=== PATIENT | female | born 1940 | race Caucasian/White ===

== ENCOUNTER 2018-02-16 13:22 | Inpatient (IN) ==
[2018-02-16] MEDS ORDERED: ONDANSETRON 4 MG/2 ML VIAL IV PRN (13:58)
[2018-02-16] MEDS ORDERED: ACETAMINOPHEN 325 MG TABLET PO PRN (13:58)
[2018-02-16] MEDS ORDERED: PROMETHAZINE INJ 25 MG in SODIUM CHLORIDE 0.9% 50 ML IV PRN (14:06)
[2018-02-16 14:46] LABS: Basophils # 0.1 10*3/uL (0.0-0.2); Basophils % 0.9 % (0.0-0.8); Eosinophils # 0.4 10*3/uL (0.0-0.87); Eosinophils % 3.5 % (0.00-10.9); Hematocrit 49.1 VOL% (35.7-47.0); Hemoglobin 15.6 GM/DL (12.0-16.0); Immature Granulocytes % 0.6 %; Immature Granulocytes Absolute 0.07 #; Lymphocytes # 1.4 10*3/uL (1.4-4.0); Lymphocytes % 12.1 % (21.3-54.2); Mean Corpuscular HGB Conc 31.8 GM/DL (32-36); Mean Corpuscular Hemoglobin 29 PG (27-34); Mean Corpuscular Volume 91.4 FL (87-102); Mean Platelet Volume 9.3 FL (9.6-12.0); Monocytes # 0.9 10*3/uL (0.11-0.8); Monocytes % 7.3 % (1.7-12.7); Neutrophils % 75.6 % (38.7-73.9); Platelet Count 364 T/CUMM (130-400); Red Blood Count 5.37 MC/CUMM (3.8-5.5); Red Cell Distribution Width 15.6 % (9.3-17.3); White Blood Count 11.9 T/CUMM (4-12)
[2018-02-16 15:18] LABS: Bilirubin,Total 0.6 MG/DL (0.2-1.0); Calcium 8.6 MG/DL (8.5-10.1); Osmolality,Calculated 274.7 MOS/KG (273-304); Potassium 4.5 MMOL/L (3.5-5.1); Total Protein 7.6 G/DL (6.4-8.3)
[2018-02-16] MEDS: PANTOPRAZOLE 40 MG VIAL IV SCH ×2 (16:58→21:26)
[2018-02-16] MEDS: DEXTROSE 5% LACTATED RINGERS 1,000 ML IV SCH (17:01)
[2018-02-16] MEDS: BUDESONIDE/FORMOTEROL 160-4.5 INHALER 6 GM INH SCH (21:24)
[2018-02-17 05:13] LABS: Basophils # 0.1 10*3/uL (0.0-0.2); Eosinophils # 0.8 10*3/uL (0.0-0.87); Eosinophils % 6.9 % (0.00-10.9); Hematocrit 39.2 VOL% (35.7-47.0); Hemoglobin 12.8 GM/DL (12.0-16.0); Immature Granulocytes % 0.5 %; Immature Granulocytes Absolute 0.06 #; Lymphocytes # 2.2 10*3/uL (1.4-4.0); Mean Corpuscular HGB Conc 32.7 GM/DL (32-36); Mean Corpuscular Hemoglobin 29 PG (27-34); Mean Corpuscular Volume 89.9 FL (87-102); Mean Platelet Volume 9.3 FL (9.6-12.0); Monocytes # 1.3 10*3/uL (0.11-0.8); Monocytes % 10.9 % (1.7-12.7); Neutrophils # 7.7 10*3/uL (1.4-7.4); Neutrophils % 62.7 % (38.7-73.9); Platelet Count 287 T/CUMM (130-400); Red Blood Count 4.36 MC/CUMM (3.8-5.5); Red Cell Distribution Width 15.4 % (9.3-17.3); White Blood Count 12.2 T/CUMM (4-12)
[2018-02-17 05:38] LABS: Albumin 1.7 G/DL (3.4-5.0); Bilirubin,Total 0.6 MG/DL (0.2-1.0); Osmolality,Calculated 271.7 MOS/KG (273-304); Potassium 3.4 MMOL/L (3.5-5.1); Total Protein 6.2 G/DL (6.4-8.3)
[2018-02-17] MEDS ORDERED: LIDOCAINE 100 MG/5 ML SYRINGE ONE (09:25)
[2018-02-17] MEDS: PANTOPRAZOLE 40 MG VIAL IV SCH (11:32)
[2018-02-17] MEDS: PARoxetine 20 MG TABLET PO SCH (11:33)
[2018-02-17] MEDS: BUDESONIDE/FORMOTEROL 160-4.5 INHALER 6 GM INH SCH ×2 (11:33→21:14)
[2018-02-17] MEDS: PROMETHAZINE 25 MG TABLET PO SCH ×2 (12:30→18:38)
[2018-02-17] MEDS ORDERED: methylPREDNISolone ACETATE 80 MG/1 ML VIAL IM ONE ×2 (13:26→15:00)
[2018-02-17] MEDS: DEXTROSE 5% LACTATED RINGERS 1,000 ML IV SCH ×2 (18:25→18:26)
[2018-02-17] MEDS: PANTOPRAZOLE 40 MG TABLET PO SCH (18:38)
[2018-02-17] MEDS: MEMANTINE 10 MG TABLET PO SCH (21:13)
[2018-02-17] MEDS: amLODIPine 10 MG TABLET PO SCH (21:13)
[2018-02-17 21:56] LABS: Apearance,Urine Slightly Hazy (Clear); Bilirubin,Urine Negative (Negative); Blood, Urine Moderate mg/dL (Negative); Glucose,Urine (UA) Negative (Negative); Hyaline Casts,Urine 1 /LPF (0-3); Ketones,Urine Negative (Negative); Mucus,Urine Occasional /LPF (Occasional); Nitrite,Urine Negative (Negative); Protein,Urine Negative; RBC,Urine 7 /HPF (0-4); Squamous Epithelial Cell,Urine Occasional /HPF (0-10); Urine Color Yellow (Yellow); Urine Specific Gravity 1.011 (1.001-1.035); Urine Urobilinogen < 2.0 EU/DL (0.2-1.0); WBC,Urine 26 /HPF (0-6)
[2018-02-18] MEDS: PROMETHAZINE 25 MG TABLET PO SCH ×4 (00:58→18:10)
[2018-02-18 05:21] LABS: Basophils # 0.1 10*3/uL (0.0-0.2); Basophils % 0.8 % (0.0-0.8); Eosinophils # 0.9 10*3/uL (0.0-0.87); Eosinophils % 7.9 % (0.00-10.9); Hematocrit 36.3 VOL% (35.7-47.0); Hemoglobin 11.7 GM/DL (12.0-16.0); Immature Granulocytes % 0.5 %; Immature Granulocytes Absolute 0.05 #; Lymphocytes # 2.6 10*3/uL (1.4-4.0); Lymphocytes % 24.2 % (21.3-54.2); Mean Corpuscular HGB Conc 32.2 GM/DL (32-36); Mean Corpuscular Hemoglobin 29 PG (27-34); Mean Corpuscular Volume 88.8 FL (87-102); Mean Platelet Volume 9.3 FL (9.6-12.0); Monocytes # 1.1 10*3/uL (0.11-0.8); Monocytes % 10.2 % (1.7-12.7); Neutrophils # 6.1 10*3/uL (1.4-7.4); Neutrophils % 56.4 % (38.7-73.9); Platelet Count 270 T/CUMM (130-400); Red Blood Count 4.09 MC/CUMM (3.8-5.5); Red Cell Distribution Width 15.8 % (9.3-17.3); White Blood Count 10.8 T/CUMM (4-12)
[2018-02-18] MEDS: PANTOPRAZOLE 40 MG TABLET PO SCH ×2 (07:23→18:10)
[2018-02-18] MEDS: DEXTROSE 5% LACTATED RINGERS 1,000 ML IV SCH ×2 (07:48→21:15)
[2018-02-18] MEDS: MEMANTINE 10 MG TABLET PO SCH ×2 (09:41→21:15)
[2018-02-18] MEDS: PARoxetine 20 MG TABLET PO SCH (09:42)
[2018-02-18] MEDS: DONEPEZIL 10 MG TABLET PO SCH (09:42)
[2018-02-18] MEDS: BUDESONIDE/FORMOTEROL 160-4.5 INHALER 6 GM INH SCH ×2 (09:42→21:15)
[2018-02-18] MEDS: LORazepam 2 MG/1 ML VIAL IV PRN (10:11)
[2018-02-18] MEDS: amLODIPine 10 MG TABLET PO SCH (21:15)
[2018-02-19] MEDS: PROMETHAZINE 25 MG TABLET PO SCH ×4 (01:01→20:28)
[2018-02-19 05:58] LABS: Basophils # 0.1 10*3/uL (0.0-0.2); Basophils % 0.7 % (0.0-0.8); Eosinophils % 9.9 % (0.00-10.9); Hematocrit 35.7 VOL% (35.7-47.0); Hemoglobin 11.5 GM/DL (12.0-16.0); Immature Granulocytes % 0.6 %; Immature Granulocytes Absolute 0.06 #; Lymphocytes # 2.5 10*3/uL (1.4-4.0); Lymphocytes % 24.7 % (21.3-54.2); Mean Corpuscular HGB Conc 32.2 GM/DL (32-36); Mean Corpuscular Hemoglobin 29 PG (27-34); Mean Corpuscular Volume 89.7 FL (87-102); Mean Platelet Volume 9.3 FL (9.6-12.0); Monocytes % 9.8 % (1.7-12.7); Neutrophils # 5.4 10*3/uL (1.4-7.4); Neutrophils % 54.3 % (38.7-73.9); Platelet Count 252 T/CUMM (130-400); Red Blood Count 3.98 MC/CUMM (3.8-5.5); Red Cell Distribution Width 15.9 % (9.3-17.3)
[2018-02-19] MEDS: PANTOPRAZOLE 40 MG TABLET PO SCH ×2 (06:36→20:30)
[2018-02-19] MEDS: BUDESONIDE/FORMOTEROL 160-4.5 INHALER 6 GM INH SCH ×2 (10:10→20:29)
[2018-02-19] MEDS: PARoxetine 20 MG TABLET PO SCH (10:11)
[2018-02-19] MEDS: MEMANTINE 10 MG TABLET PO SCH ×2 (10:11→20:30)
[2018-02-19] MEDS: DONEPEZIL 10 MG TABLET PO SCH (10:11)
[2018-02-19] MEDS: DEXTROSE 5% LACTATED RINGERS 1,000 ML IV SCH (18:30)
[2018-02-19] MEDS: MEROPENEM 1,000 MG in SYRINGE 1 EACH IV SCH (20:30)
[2018-02-19] MEDS: amLODIPine 10 MG TABLET PO SCH (20:30)
[2018-02-20] MEDS: PROMETHAZINE 25 MG TABLET PO SCH ×5 (01:13→18:27)
[2018-02-20] MEDS: MEROPENEM 1,000 MG in SYRINGE 1 EACH IV SCH ×3 (05:20→20:53)
[2018-02-20 05:51] LABS: Basophils # 0.1 10*3/uL (0.0-0.2); Basophils % 0.8 % (0.0-0.8); Eosinophils # 1.3 10*3/uL (0.0-0.87); Eosinophils % 10.6 % (0.00-10.9); Hemoglobin 13.1 GM/DL (12.0-16.0); Immature Granulocytes % 0.6 %; Immature Granulocytes Absolute 0.07 #; Lymphocytes # 2.9 10*3/uL (1.4-4.0); Lymphocytes % 22.8 % (21.3-54.2); Mean Corpuscular HGB Conc 32.8 GM/DL (32-36); Mean Corpuscular Hemoglobin 29 PG (27-34); Mean Corpuscular Volume 89.9 FL (87-102); Mean Platelet Volume 9.1 FL (9.6-12.0); Monocytes # 1.1 10*3/uL (0.11-0.8); Monocytes % 8.6 % (1.7-12.7); Neutrophils # 7.1 10*3/uL (1.4-7.4); Neutrophils % 56.6 % (38.7-73.9); Platelet Count 320 T/CUMM (130-400); Red Blood Count 4.45 MC/CUMM (3.8-5.5); Red Cell Distribution Width 16.1 % (9.3-17.3); White Blood Count 12.6 T/CUMM (4-12)
[2018-02-20] MEDS: PANTOPRAZOLE 40 MG TABLET PO SCH ×2 (06:06→18:27)
[2018-02-20 06:08] LABS: Albumin 1.8 G/DL (3.4-5.0); Calcium 8.1 MG/DL (8.5-10.1); Osmolality,Calculated 278.3 MOS/KG (273-304); Potassium 3.8 MMOL/L (3.5-5.1); Total Protein 6.8 G/DL (6.4-8.3)
[2018-02-20] MEDS: DEXTROSE 5% LACTATED RINGERS 1,000 ML IV SCH ×2 (06:09→16:04)
[2018-02-20] MEDS: DONEPEZIL 10 MG TABLET PO SCH (09:32)
[2018-02-20] MEDS: MEMANTINE 10 MG TABLET PO SCH ×2 (09:32→20:53)
[2018-02-20] MEDS: BUDESONIDE/FORMOTEROL 160-4.5 INHALER 6 GM INH SCH ×2 (09:33→20:55)
[2018-02-20] MEDS: PARoxetine 20 MG TABLET PO SCH ×2 (09:33→20:53)
[2018-02-20] MEDS: amLODIPine 10 MG TABLET PO SCH (20:53)
[2018-02-20] MEDS ORDERED: PHENAZOPYRIDINE 95 MG TABLET PO SCH (22:19)
[2018-02-21] MEDS: DEXTROSE 5% LACTATED RINGERS 1,000 ML IV SCH ×2 (00:23→09:45)
[2018-02-21] MEDS: PROMETHAZINE 25 MG TABLET PO SCH ×4 (00:24→19:26)
[2018-02-21] MEDS: MEROPENEM 1,000 MG in SYRINGE 1 EACH IV SCH (03:58)
[2018-02-21] MEDS: PANTOPRAZOLE 40 MG TABLET PO SCH ×2 (06:06→19:26)
[2018-02-21 06:40] LABS: Basophils # 0.1 10*3/uL (0.0-0.2); Basophils % 0.7 % (0.0-0.8); Eosinophils % 16.9 % (0.00-10.9); Hemoglobin 11.9 GM/DL (12.0-16.0); Immature Granulocytes % 0.5 %; Immature Granulocytes Absolute 0.06 #; Lymphocytes # 2.3 10*3/uL (1.4-4.0); Lymphocytes % 19.2 % (21.3-54.2); Mean Corpuscular HGB Conc 32.2 GM/DL (32-36); Mean Corpuscular Hemoglobin 29 PG (27-34); Mean Corpuscular Volume 90.7 FL (87-102); Mean Platelet Volume 9.1 FL (9.6-12.0); Monocytes % 8.2 % (1.7-12.7); Neutrophils # 6.5 10*3/uL (1.4-7.4); Neutrophils % 54.5 % (38.7-73.9); Platelet Count 261 T/CUMM (130-400); Red Blood Count 4.08 MC/CUMM (3.8-5.5); Red Cell Distribution Width 16.4 % (9.3-17.3); White Blood Count 11.8 T/CUMM (4-12)
[2018-02-21 07:07] LABS: Calcium 8.2 MG/DL (8.5-10.1); Osmolality,Calculated 278.3 MOS/KG (273-304); Potassium 3.7 MMOL/L (3.5-5.1)
[2018-02-21 07:13] LABS: Eosinophils 10 % (0-10); Hypochromasia 1+; Lymphocytes 17 % (20-55); Microcytosis 1+; Segmented Neutrophils 66 % (50-85); Total Cells Counted 100
[2018-02-21] MEDS: MEMANTINE 10 MG TABLET PO SCH ×2 (09:47→22:22)
[2018-02-21] MEDS: DONEPEZIL 10 MG TABLET PO SCH (09:47)
[2018-02-21] MEDS: BUDESONIDE/FORMOTEROL 160-4.5 INHALER 6 GM INH SCH ×2 (09:48→22:15)
[2018-02-21] MEDS: AMOXICILLIN/CLAV 875 MG TABLET PO SCH ×2 (10:39→22:22)
[2018-02-21] MEDS: LORazepam 2 MG/1 ML VIAL IV PRN (10:48)
[2018-02-21] MEDS ORDERED: PHENAZOPYRIDINE 95 MG TABLET PO SCH (22:12)
[2018-02-21] MEDS: amLODIPine 10 MG TABLET PO SCH (22:22)
[2018-02-21] MEDS: PARoxetine 20 MG TABLET PO SCH (22:22)
[2018-02-21] MEDS: QUEtiapine 25 MG TABLET PO SCH ×2 (22:23)
[2018-02-22] MEDS: PROMETHAZINE 25 MG TABLET PO SCH ×4 (00:22→19:50)
[2018-02-22] MEDS: PANTOPRAZOLE 40 MG TABLET PO SCH ×2 (06:36→19:28)
[2018-02-22] MEDS: DONEPEZIL 10 MG TABLET PO SCH (10:06)
[2018-02-22] MEDS: BUDESONIDE/FORMOTEROL 160-4.5 INHALER 6 GM INH SCH ×2 (10:07→22:21)
[2018-02-22] MEDS: QUEtiapine 25 MG TABLET PO SCH ×2 (10:07→22:22)
[2018-02-22] MEDS: AMOXICILLIN/CLAV 875 MG TABLET PO SCH ×2 (10:07→22:21)
[2018-02-22] MEDS: MEMANTINE 10 MG TABLET PO SCH ×2 (10:07→22:22)
[2018-02-22 10:36] LABS: Apearance,Urine CLEAR (Clear); Bacteria,Urine Occasional /HPF (Few); Bilirubin,Urine Negative (Negative); Blood, Urine Negative (Negative); Glucose,Urine (UA) Negative (Negative); Ketones,Urine Negative (Negative); Nitrite,Urine Negative (Negative); Protein,Urine Negative; RBC,Urine 2 /HPF (0-4); Squamous Epithelial Cell,Urine Occasional /HPF (0-10); Urine Color Straw (Yellow); Urine Specific Gravity 1.006 (1.001-1.035); Urine Urobilinogen < 2.0 EU/DL (0.2-1.0); WBC,Urine 1 /HPF (0-6)
[2018-02-22] MEDS ORDERED: TUBERCULIN SKIN TEST 0.1 ML SYRINGE INTRADERM ONE (15:56)
[2018-02-22] MEDS: amLODIPine 10 MG TABLET PO SCH (22:22)
[2018-02-22] MEDS: PARoxetine 20 MG TABLET PO SCH (22:22)
[2018-02-23] MEDS: PROMETHAZINE 25 MG TABLET PO SCH ×4 (00:36→19:05)
[2018-02-23] MEDS: PANTOPRAZOLE 40 MG TABLET PO SCH ×2 (06:48→19:05)
[2018-02-23] MEDS: BUDESONIDE/FORMOTEROL 160-4.5 INHALER 6 GM INH SCH ×2 (10:37→20:41)
[2018-02-23] MEDS: QUEtiapine 25 MG TABLET PO SCH ×2 (10:38→20:40)
[2018-02-23] MEDS: MEMANTINE 10 MG TABLET PO SCH ×2 (10:38→20:40)
[2018-02-23] MEDS: AMOXICILLIN/CLAV 875 MG TABLET PO SCH ×2 (10:38→20:39)
[2018-02-23] MEDS: DONEPEZIL 10 MG TABLET PO SCH (10:38)
[2018-02-23] MEDS: amLODIPine 10 MG TABLET PO SCH (20:40)
[2018-02-23] MEDS: PARoxetine 20 MG TABLET PO SCH (20:40)
[2018-02-24] MEDS: PROMETHAZINE 25 MG TABLET PO SCH ×2 (00:44→06:19)
[2018-02-24] MEDS: PANTOPRAZOLE 40 MG TABLET PO SCH (06:19)
[2018-02-24 07:59] VITALS: BP 127/64
[2018-02-24] MEDS: QUEtiapine 25 MG TABLET PO SCH (09:17)
[2018-02-24] MEDS: AMOXICILLIN/CLAV 875 MG TABLET PO SCH (09:17)
[2018-02-24] MEDS: DONEPEZIL 10 MG TABLET PO SCH (09:17)
[2018-02-24] MEDS: MEMANTINE 10 MG TABLET PO SCH (09:17)
[2018-02-24] MEDS: BUDESONIDE/FORMOTEROL 160-4.5 INHALER 6 GM INH SCH (09:18)
== END 2018-02-24 11:09 | DRG 392 ==
LOC: N.3E
PROVIDERS: ADMIT Internal Medicine Gastroenterology; ATTEND Internal Medicine Gastroenterology

== ENCOUNTER 2019-03-19 12:22 | Inpatient (IN) ==
[2019-03-19 13:11] LABS: Basophils # 0.1 10*3/uL (0.0-0.2); Basophils % 0.7 % (0.0-0.8); Eosinophils # 0.2 10*3/uL (0.0-0.87); Eosinophils % 1.9 % (0.00-10.9); Hematocrit 39.2 VOL% (35.7-47.0); Hemoglobin 12.7 GM/DL (12.0-16.0); Immature Granulocytes % 0.6 %; Immature Granulocytes Absolute 0.07 #; Lymphocytes # 1.9 10*3/uL (1.4-4.0); Lymphocytes % 15.8 % (21.3-54.2); Mean Corpuscular HGB Conc 32.4 GM/DL (32-36); Mean Corpuscular Volume 93.1 FL (87-102); Mean Platelet Volume 9.6 FL (9.6-12.0); Platelet Count 248 T/CUMM (130-400); Red Blood Count 4.21 MC/CUMM (3.8-5.5); Red Cell Distribution Width 13.2 % (9.3-17.3)
[2019-03-19 13:27] LABS: Calcium 8.2 MG/DL (8.5-10.1); Osmolality,Calculated 279.7 MOS/KG (273-304)
[2019-03-19] MEDS ORDERED: SODIUM CHLORIDE 0.9% 1,000 ML IV STA (14:28)
[2019-03-19 14:51] LABS: Apearance,Urine CLEAR (Clear); Bacteria,Urine Many /HPF (Few); Bilirubin,Urine Negative (Negative); Blood, Urine Large mg/dL (Negative); Glucose,Urine (UA) Negative (Negative); Ketones,Urine 5 mg/dL (Negative); Mucus,Urine Occasional /LPF (Occasional); Nitrite,Urine Positive (Negative); Protein,Urine Negative; RBC,Urine 25 /HPF (0-4); Squamous Epithelial Cell,Urine Occasional /HPF (0-10); Urine Specific Gravity 1.025 (1.001-1.035); WBC,Urine 16 /HPF (0-6)
[2019-03-19 14:59] LABS: Urine Color Yellow (Yellow)
[2019-03-19] MEDS ORDERED: DOCUSATE SODIUM 100 MG CAPSULE PO PRN (15:28)
[2019-03-19] MEDS ORDERED: MORPHINE 4 MG/1 ML VIAL IV PRN (15:28)
[2019-03-19] MEDS ORDERED: ACETAMINOPHEN 325 MG TABLET PO PRN (15:28)
[2019-03-19] MEDS ORDERED: ONDANSETRON 4 MG/2 ML VIAL IV PRN (15:28)
[2019-03-19 16:02] LABS: Thyroid Stimulating Hormone 4.93 uIU/ml (0.358-3.74)
[2019-03-19 21:56] LABS: PT Patient Result 10.6 SECS (9.6-12.2)
[2019-03-20] MEDS: ALBUTEROL/IPRATROPIUM 3 ML NEB RESP TX SCH ×4 (01:05→20:10)
[2019-03-20 05:40] LABS: Basophils # 0.1 10*3/uL (0.0-0.2); Basophils % 0.8 % (0.0-0.8); Eosinophils # 0.3 10*3/uL (0.0-0.87); Eosinophils % 2.8 % (0.00-10.9); Hematocrit 37.1 VOL% (35.7-47.0); Hemoglobin 11.9 GM/DL (12.0-16.0); Immature Granulocytes % 0.5 %; Immature Granulocytes Absolute 0.06 #; Lymphocytes # 2.4 10*3/uL (1.4-4.0); Lymphocytes % 20.9 % (21.3-54.2); Mean Corpuscular HGB Conc 32.1 GM/DL (32-36); Mean Corpuscular Volume 94.2 FL (87-102); Mean Platelet Volume 9.4 FL (9.6-12.0); Platelet Count 247 T/CUMM (130-400); Red Blood Count 3.94 MC/CUMM (3.8-5.5); Red Cell Distribution Width 13.2 % (9.3-17.3); White Blood Count 11.2 T/CUMM (4-12)
[2019-03-20] MEDS ORDERED: FAMOTIDINE 20 MG TABLET PO ONE (06:00)
[2019-03-20 06:12] LABS: Calcium 8.1 MG/DL (8.5-10.1); Osmolality,Calculated 281.4 MOS/KG (273-304)
[2019-03-20] MEDS ORDERED: ceFAZolin 2,000 MG in PREMIX 1 EACH IV ONE (07:30)
[2019-03-20] MEDS ORDERED: fentaNYL 100 MCG/2 ML VIAL ONE (07:41)
[2019-03-20] MEDS ORDERED: MIDAZOLAM 2 MG/2 ML VIAL ONE (07:41)
[2019-03-20] MEDS ORDERED: EPINEPHrine 1 MG/ML VIAL ONE (07:41)
[2019-03-20] MEDS ORDERED: BUPIVACAINE MPF 0.25% 30 ML VIAL ONE (07:41)
[2019-03-20] MEDS ORDERED: DEXAMETHASONE 4 MG/1 ML VIAL ONE (07:41)
[2019-03-20] MEDS: PANTOPRAZOLE 40 MG TABLET PO SCH (08:49)
[2019-03-20] MEDS ORDERED: INFLUENZA VIRUS VACCINE 0.5 ML SYRINGE IM ONE (09:37)
[2019-03-20] MEDS ORDERED: PNEUMOCOCCAL VACCINE (13 VALENT) 0.5 ML SYRINGE IM ONE (09:37)
[2019-03-20] MEDS ORDERED: BISACODYL 10 MG SUPP RECTAL PRN (10:43)
[2019-03-20] MEDS ORDERED: MAGNESIUM HYDROXIDE SUSP 30 ML UDCUP PO PRN (10:43)
[2019-03-20] MEDS ORDERED: PROMETHAZINE 25 MG/1 ML VIAL IM PRN (10:43)
[2019-03-20] MEDS ORDERED: LACTULOSE 20 GM/30 ML UDCUP PO PRN (10:43)
[2019-03-20] MEDS ORDERED: diphenhydrAMINE CAP 25 MG CAPSULE PO PRN (10:43)
[2019-03-20] MEDS ORDERED: TEMAZEPAM 7.5 MG CAPSULE PO PRN (10:43)
[2019-03-20] MEDS ORDERED: MORPHINE 4 MG/1 ML VIAL IV PRN (10:46)
[2019-03-20] MEDS ORDERED: PROPOFOL 200 MG/20 ML VIAL IV ONE (10:50)
[2019-03-20] MEDS ORDERED: KETAMINE 500 MG/10 ML VIAL ONE (10:51)
[2019-03-20] MEDS ORDERED: TRANEXAMIC ACID 1,000 MG/10 ML VIAL ONE (10:51)
[2019-03-20] MEDS ORDERED: PHENYLEPHRINE 1 MG/10 ML SYRINGE IV ONE (10:51)
[2019-03-20] MEDS ORDERED: LIDOCAINE 2% 5 ML VIAL ONE (10:52)
[2019-03-20] MEDS ORDERED: BUPIVACAINE SPINAL 0.75% 2 ML AMP SPINAL ONE (10:53)
[2019-03-20] MEDS: LACTATED RINGERS 1,000 ML IV SCH (11:50)
[2019-03-20] MEDS: ceFAZolin 2,000 MG in PREMIX 1 EACH IV SCH (15:34)
[2019-03-20] MEDS ORDERED: ALBUTEROL 2.5 MG/3 ML NEB RESP TX PRN (15:40)
[2019-03-20] MEDS ORDERED: ALBUTEROL/IPRATROPIUM 3 ML NEB RESP TX PRN (15:40)
[2019-03-20] MEDS: QUEtiapine 25 MG TABLET PO SCH ×2 (15:47→21:59)
[2019-03-20] MEDS: MEMANTINE 10 MG TABLET PO SCH (21:59)
[2019-03-21] MEDS: ceFAZolin 2,000 MG in PREMIX 1 EACH IV SCH (00:40)
[2019-03-21] MEDS: ALBUTEROL/IPRATROPIUM 3 ML NEB RESP TX SCH ×4 (02:17→19:11)
[2019-03-21] MEDS: FONDAPARINUX 2.5 MG/0.5 ML SYRINGE SUBCUT SCH (05:10)
[2019-03-21 05:53] LABS: Basophils # 0.1 10*3/uL (0.0-0.2); Basophils % 0.5 % (0.0-0.8); Eosinophils % 0.3 % (0.00-10.9); Hemoglobin 11.7 GM/DL (12.0-16.0); Immature Granulocytes % 0.7 %; Lymphocytes # 1.8 10*3/uL (1.4-4.0); Lymphocytes % 12.1 % (21.3-54.2); Mean Corpuscular HGB Conc 34.4 GM/DL (32-36); Mean Corpuscular Volume 92.1 FL (87-102); Mean Platelet Volume 9.7 FL (9.6-12.0); Monocytes % 14.5 % (1.7-12.7); Neutrophils % 71.9 % (38.7-73.9); Platelet Count 243 T/CUMM (130-400); Red Blood Count 3.69 MC/CUMM (3.8-5.5); Red Cell Distribution Width 13.2 % (9.3-17.3); White Blood Count 15.3 T/CUMM (4-12)
[2019-03-21 06:09] LABS: Calcium 8.2 MG/DL (8.5-10.1); Osmolality,Calculated 278.7 MOS/KG (273-304)
[2019-03-21] MEDS: LACTATED RINGERS 1,000 ML IV SCH (06:34)
[2019-03-21] MEDS: MEMANTINE 10 MG TABLET PO SCH ×2 (08:34→20:19)
[2019-03-21] MEDS: DONEPEZIL 10 MG TABLET PO SCH (08:34)
[2019-03-21] MEDS: QUEtiapine 25 MG TABLET PO SCH ×2 (08:34→20:19)
[2019-03-21] MEDS: amLODIPine 10 MG TABLET PO SCH (08:34)
[2019-03-21] MEDS: PANTOPRAZOLE 40 MG TABLET PO SCH (08:34)
[2019-03-21] MEDS ORDERED: BUDESONIDE/FORMOTEROL 160-4.5 INHALER 6 GM INH SCH (09:00)
[2019-03-21] MEDS ORDERED: TUBERCULIN SKIN TEST 0.1 ML SYRINGE INTRADERM ONE (09:39)
[2019-03-21] MEDS ORDERED: cefTRIAXone 2,000 MG in SYRINGE 1 EACH IV SCH (16:30)
[2019-03-22] MEDS: LACTATED RINGERS 1,000 ML IV SCH (02:59)
[2019-03-22] MEDS: ALBUTEROL/IPRATROPIUM 3 ML NEB RESP TX SCH ×2 (03:30→07:40)
[2019-03-22] MEDS: FONDAPARINUX 2.5 MG/0.5 ML SYRINGE SUBCUT SCH (06:22)
[2019-03-22 08:19] VITALS: BP 142/73
[2019-03-22] MEDS: QUEtiapine 25 MG TABLET PO SCH (09:07)
[2019-03-22] MEDS: PANTOPRAZOLE 40 MG TABLET PO SCH (09:07)
[2019-03-22] MEDS: DONEPEZIL 10 MG TABLET PO SCH (09:07)
[2019-03-22] MEDS: MEMANTINE 10 MG TABLET PO SCH (09:07)
[2019-03-22] MEDS: amLODIPine 10 MG TABLET PO SCH (09:07)
== END 2019-03-22 10:50 | disposition swing bed (61) | DRG 470 ==
LOC: EDBD → EDUNIT# → N.ED 12:22 → N.EDINP 15:05 → N.3E 15:25
PROVIDERS: ADMIT Hospitalist; ATTEND Hospitalist

== ENCOUNTER 2022-08-05 08:00 | Inpatient (IN) ==
[2022-08-05] MEDS ORDERED: ALBUTEROL NEB SOLN 5 MG/ML 20 ML/BOTTLE CONT NEB STA (08:25)
[2022-08-05] MEDS ORDERED: methylPREDNISolone SOD SUC 125 MG/2 ML VIAL IV STA (08:25)
[2022-08-05] MEDS ORDERED: ALBUTEROL 2.5 MG/3 ML NEB RESP TX ONE (08:30)
[2022-08-05 09:20] LABS: Basophils # 0.1 10*3/uL (0.0-0.2); Basophils % 0.8 % (0.0-0.8); Eosinophils # 1.5 10*3/uL (0.0-0.87); Eosinophils % 9.8 % (0.00-10.9); Hematocrit 45.3 VOL% (35.7-47.0); Hemoglobin 14.1 GM/DL (12.0-16.0); Immature Granulocytes % 0.4 %; Immature Granulocytes Absolute 0.06 #; Lymphocytes # 3.9 10*3/uL (1.4-4.0); Lymphocytes % 24.8 % (21.3-54.2); Mean Corpuscular HGB Conc 31.1 GM/DL (32-36); Mean Corpuscular Volume 95.4 FL (87-102); Mean Platelet Volume 9.4 FL (9.6-12.0); Monocytes # 1.3 10*3/uL (0.11-0.8); Monocytes % 8.5 % (1.7-12.7); Neutrophils % 55.7 % (38.7-73.9); Platelet Count 322 T/CUMM (130-400); Red Blood Count 4.75 MC/CUMM (3.8-5.5); White Blood Count 15.54 T/CUMM (4-12)
[2022-08-05] MEDS ORDERED: LEVOFLOXACIN INJ 500 MG/100 ML PREMIX IV STA (09:21)
[2022-08-05 09:40] LABS: Albumin 2.6 G/DL (3.4-5.0); Bilirubin,Total 0.5 MG/DL (0.20-1.00); Osmolality,Calculated 293.7 MOS/KG (273-304); Potassium 3.9 MMOL/L (3.5-5.1); Total Protein 7.4 G/DL (6.4-8.2)
[2022-08-05] MEDS ORDERED: SODIUM CHLORIDE 0.9% 1,000 ML IV STA (10:14)
[2022-08-05 10:33] LABS: ABG Base Excess 4.2 MMOL/L (-2.5-2.5); ABG HCO3 27.9 MMOL/L (20-26); ABG Oxygen Saturation 89.4 % (95-100); ABG PCO2 45.4 MM HG (35-48); ABG PO2 61.2 MM HG (80-95); ABG TCO2 25.5 MMOL/L (23-27)
[2022-08-05] MEDS ORDERED: GLUCAGON 1 MG VIAL IM PRN (10:35)
[2022-08-05] MEDS ORDERED: DOCUSATE SODIUM 100 MG CAPSULE PO PRN (10:35)
[2022-08-05] MEDS ORDERED: ACETAMINOPHEN 325 MG TABLET PO PRN (10:35)
[2022-08-05] MEDS ORDERED: ONDANSETRON 4 MG/2 ML VIAL IV PRN (10:35)
[2022-08-05] MEDS ORDERED: guaiFENesin/DM ER 600-30 MG TABLET PO PRN (10:35)
[2022-08-05] MEDS ORDERED: DEXTROSE 10% 250 ML BAG IV PRN (10:35)
[2022-08-05] MEDS ORDERED: NYSTATIN CREAM 15 GM TUBE TOP PRN (10:37)
[2022-08-05] MEDS ORDERED: MELATONIN 3 MG TABLET PO PRN (10:37)
[2022-08-05] MEDS ORDERED: BETAMETHASONE DIPR 0.05% CREAM 15 GM TUBE TOP PRN (10:37)
[2022-08-05] MEDS ORDERED: cefTRIAXone 1,000 MG in SODIUM CHLORIDE 0.9% 100 ML IV STA (10:40)
[2022-08-05] MEDS ORDERED: AZITHROMYCIN 250 MG TABLET PO STA (10:40)
[2022-08-05] MEDS: cefTRIAXone 1,000 MG in SODIUM CHLORIDE 0.9% 100 ML IV SCH (11:39)
[2022-08-05] MEDS: INSULIN LISPRO 100 UNIT/ML SUBCUT SCH ×3 (13:08→21:41)
[2022-08-05] MEDS: ALBUTEROL/IPRATROPIUM 3 ML NEB RESP TX SCH ×2 (14:30→18:57)
[2022-08-05] MEDS ORDERED: LACTATED RINGERS 1,100 ML IV ONE (15:45)
[2022-08-05] MEDS ORDERED: ZIPRASIDONE 20 MG/1 ML VIAL IM ONE (18:30)
[2022-08-05] MEDS: APIXABAN 5 MG TABLET PO SCH (21:39)
[2022-08-05] MEDS: QUEtiapine 25 MG TABLET PO SCH (21:39)
[2022-08-05] MEDS: MIRTAZAPINE 15 MG TABLET PO SCH (21:39)
[2022-08-05] MEDS: hydrOXYzine HCL 10 MG TABLET PO SCH (21:40)
[2022-08-05] MEDS: MEMANTINE 10 MG TABLET PO SCH (21:40)
[2022-08-05] MEDS: busPIRone 5 MG TABLET PO SCH (21:40)
[2022-08-05] MEDS: DONEPEZIL 10 MG TABLET PO SCH (21:40)
[2022-08-05] MEDS: DOCUSATE SODIUM 100 MG CAPSULE PO SCH (21:43)
[2022-08-05] MEDS: GABAPENTIN 100 MG CAPSULE PO SCH (22:28)
[2022-08-06] MEDS: ALBUTEROL/IPRATROPIUM 3 ML NEB RESP TX SCH ×4 (00:07→19:17)
[2022-08-06 06:09] LABS: Basophils % 0.2 % (0.0-0.8); Eosinophils % 0.2 % (0.00-10.9); Hematocrit 39.3 VOL% (35.7-47.0); Hemoglobin 12.4 GM/DL (12.0-16.0); Immature Granulocytes % 0.9 %; Immature Granulocytes Absolute 0.11 #; Lymphocytes # 1.8 10*3/uL (1.4-4.0); Mean Corpuscular HGB Conc 31.6 GM/DL (32-36); Mean Corpuscular Volume 94.9 FL (87-102); Mean Platelet Volume 9.4 FL (9.6-12.0); Monocytes # 0.9 10*3/uL (0.11-0.8); Monocytes % 6.7 % (1.7-12.7); Platelet Count 237 T/CUMM (130-400); Red Blood Count 4.14 MC/CUMM (3.8-5.5); Red Cell Distribution Width 13.2 % (9.3-17.3)
[2022-08-06 06:35] LABS: Osmolality,Calculated 293.7 MOS/KG (273-304); Potassium 3.8 MMOL/L (3.5-5.1)
[2022-08-06] MEDS: predniSONE 20 MG TABLET PO SCH (10:27)
[2022-08-06] MEDS: hydrOXYzine HCL 10 MG TABLET PO SCH ×2 (10:27→20:40)
[2022-08-06] MEDS: MULTIVITAMIN (CENTRUM) TABLET PO SCH (10:27)
[2022-08-06] MEDS: PANTOPRAZOLE 40 MG TABLET PO SCH (10:27)
[2022-08-06] MEDS: LORazepam 0.5 MG TABLET PO SCH (10:27)
[2022-08-06] MEDS: AZITHROMYCIN 250 MG TABLET PO SCH (10:27)
[2022-08-06] MEDS: FUROSEMIDE 40 MG TABLET PO SCH (10:27)
[2022-08-06] MEDS: CETIRIZINE 10 MG TABLET PO SCH (10:28)
[2022-08-06] MEDS: MONTELUKAST 10 MG TABLET PO SCH (10:28)
[2022-08-06] MEDS: GABAPENTIN 100 MG CAPSULE PO SCH ×2 (10:28→20:40)
[2022-08-06] MEDS: POLYETHYLENE GLYCOL POWDER 17 GM PACK PO SCH (10:28)
[2022-08-06] MEDS: amLODIPine 10 MG TABLET PO SCH (10:28)
[2022-08-06] MEDS: busPIRone 5 MG TABLET PO SCH ×2 (10:28→20:40)
[2022-08-06] MEDS: APIXABAN 5 MG TABLET PO SCH ×2 (10:28→20:40)
[2022-08-06] MEDS: MEMANTINE 10 MG TABLET PO SCH ×2 (10:28→20:40)
[2022-08-06] MEDS: cefTRIAXone 1,000 MG in SODIUM CHLORIDE 0.9% 100 ML IV SCH (10:28)
[2022-08-06] MEDS: SERTRALINE 50 MG TABLET PO SCH (10:33)
[2022-08-06] MEDS: NAPROXEN 250 MG TABLET PO SCH (10:33)
[2022-08-06] MEDS ORDERED: POTASSIUM CHLORIDE 10 MEQ TABLET PO SCH (10:37)
[2022-08-06] MEDS: INSULIN LISPRO 100 UNIT/ML SUBCUT SCH ×4 (11:06→20:40)
[2022-08-06] MEDS: BUDESONIDE/FORMOTEROL 160-4.5 INHALER 6 GM INH SCH (11:07)
[2022-08-06] MEDS: DOCUSATE SODIUM 100 MG CAPSULE PO SCH (20:40)
[2022-08-06] MEDS: MIRTAZAPINE 15 MG TABLET PO SCH (20:40)
[2022-08-06] MEDS: QUEtiapine 25 MG TABLET PO SCH (20:40)
[2022-08-06] MEDS: DONEPEZIL 10 MG TABLET PO SCH (20:40)
[2022-08-07] MEDS: ALBUTEROL/IPRATROPIUM 3 ML NEB RESP TX SCH ×2 (00:50→07:48)
[2022-08-07] MEDS: INSULIN LISPRO 100 UNIT/ML SUBCUT SCH ×2 (09:38→12:05)
[2022-08-07] MEDS: POLYETHYLENE GLYCOL POWDER 17 GM PACK PO SCH (09:38)
[2022-08-07] MEDS: amLODIPine 10 MG TABLET PO SCH (09:39)
[2022-08-07] MEDS: NAPROXEN 250 MG TABLET PO SCH (09:39)
[2022-08-07] MEDS: FUROSEMIDE 40 MG TABLET PO SCH (09:39)
[2022-08-07] MEDS: MULTIVITAMIN (CENTRUM) TABLET PO SCH (09:39)
[2022-08-07] MEDS: LORazepam 0.5 MG TABLET PO SCH (09:39)
[2022-08-07] MEDS: SERTRALINE 50 MG TABLET PO SCH (09:39)
[2022-08-07] MEDS: hydrOXYzine HCL 10 MG TABLET PO SCH (09:39)
[2022-08-07] MEDS: AZITHROMYCIN 250 MG TABLET PO SCH (09:39)
[2022-08-07] MEDS: PANTOPRAZOLE 40 MG TABLET PO SCH (09:39)
[2022-08-07] MEDS: predniSONE 20 MG TABLET PO SCH (09:39)
[2022-08-07] MEDS: MEMANTINE 10 MG TABLET PO SCH (09:40)
[2022-08-07] MEDS: GABAPENTIN 100 MG CAPSULE PO SCH (09:40)
[2022-08-07] MEDS: APIXABAN 5 MG TABLET PO SCH (09:40)
[2022-08-07] MEDS: CETIRIZINE 10 MG TABLET PO SCH (09:40)
[2022-08-07] MEDS: busPIRone 5 MG TABLET PO SCH (09:40)
[2022-08-07] MEDS: MONTELUKAST 10 MG TABLET PO SCH (09:45)
[2022-08-07] MEDS: BUDESONIDE/FORMOTEROL 160-4.5 INHALER 6 GM INH SCH (10:44)
[2022-08-07] MEDS ORDERED: guaiFENesin/DM ER 600-30 MG TABLET PO ONE (10:45)
[2022-08-07 11:45] VITALS: BP 135/67
[2022-08-07] MEDS: cefTRIAXone 1,000 MG in SODIUM CHLORIDE 0.9% 100 ML IV SCH (12:36)
== END 2022-08-07 14:11 | DRG 190 ==
LOC: N.ED 08:00 → N.3E 10:36 → SUATTDRO 10:36 → N.3E 15:55
PROVIDERS: ADMIT Internal Medicine; ATTEND Family Medicine